=== PATIENT | male | born 2000 | race Asian ===

== ENCOUNTER 2019-12-14 05:05 | Emergency (ER) | payer OTHER ==
[~2019-12-14] VITALS: Ht 177 cm; Wt 60.0 kg
[2019-12-14] MEDS ORDERED: NS IV 1000 ML 1,000 ML IV SCH (05:26)
--- NOTE | 2019-12-14 05:29 | ED Trauma-Multisystem ---
General Chief Complaint: Trauma-Non Activation Stated Complaint: FALL DOWN STAIRS Source of Information: Patient (MERVATJENNIFER Mcduffie DO) History of Present Illness Date Seen by Provider: Dec 14, 2019 Time Seen by Provider: 05:16 Initial Comments PT ARRIVES VIA POV --AMBULATES IN ON HIS OWN STATES HE WAS WALKING UP STAIRS AND SLIPPED ON SOME SOCCER BALLS THAT WERE ON THE STAIRS, AND FELL BACKWARDS DOWN > 10 STAIRS, HITTING HIS HEAD, LEFT ARM, LEFT LEG--IS UNKNOWN EXACTLY WHAT HE HIT HIS HEAD, ARM AND LEG ON WHEN HE FELL DENIES LOSS OF CONSCIOUSNESS DENIES NECK OR BACK PAIN NO VISION CHANGES--WEARS GLASSES NO NAUSEA/VOMITING NO PARESTHESIAS OR MOTOR DEFICITS OCCURRED JUST PRIOR TO ARRIVAL LAST TETANUS IS UNKNOWN PT IMMEDIATELY PLACED IN CERVICAL COLLAR ON ARRIVAL [facility] ST[facility] (JENNIFER AKINS DO) Allergies and Home Medications Allergies Coded Allergies: No Known Drug Allergies (Unverified , 12/14/19) Patient Home Medication List Home Medication List Reviewed: Yes (LUCY SEGURA MD) Review of Systems Review of Systems Constitutional: no symptoms reported; No dizziness Eyes: No Symptoms Reported; Denies Vision Changes Ears: No Symptoms Reported Nose: No Symptoms Reported Mouth: No Symptoms Reported Throat: No Symptoms to Report Respiratory: no symptoms reported Cardiovascular: No Symptoms Reported; Denies Chest Pain Gastrointestinal: no symptoms reported; No abdominal pain, No nausea, No vomiting Genitourinary: no symptoms reported Musculoskeletal: see HPI Skin: see HPI (ABRASIONS TO ARMS AND LEGS, AND LACERATION TO RIGHT POST- AURICULAR AREA) Psychiatric/Neurological: No Symptoms Reported; Denies Cognitive Dysfunction, Denies Headache, Denies Numbness, Denies Petit Mal Seizures, Denies Tingling, Denies Tonic Clonic Seizures (JENNIFER AKINS DO) Past Zxipkvx-Kdorfd-Samlju Hx Past Med/Social Hx: Reviewed and Corrections made (JENNIFER AKINS DO) Patient Social History Alcohol Use: Denies Use Recreational Drug Use: No Smoking Status: Current Everyday Smoker Type Used: Hookah Recent Foreign Travel: No Contact w/Someone Who Travel: No (JENNIFER AKINS DO) Immunizations Up To Date Tetanus Booster (TDap): Unknown (JENNIFER AKINS DO) Past Medical History Surgeries: No Respiratory: No Cardiac: No Neurological: No Genitourinary: No Gastrointestinal: No Musculoskeletal: No Endocrine: No HEENT: No Cancer: No Psychosocial: No Integumentary: No Blood Disorders: No (JENNIFER AKINS DO) Physical Exam Vital Signs Vital Signs - First Documented 12/14/19 05:19 Temp 36.7 Pulse 74 Resp 19 B/P (MAP) 150/93 (112) Pulse Ox 99 O2 Delivery Room Air (LUCY SEGURA MD) Height, Weight, BMI Height: '" Weight: lbs. oz. kg; BMI Method: General Appearance: No Apparent Distress, WD/WN, Anxious Head: Lacerations (RIGHT POST-AURICULAR AREA WITH LARGE LACERATION, TENDERNESS AND SWELLING), Swelling, Tenderness Neck: Non Tender, Other (IMMEDIATELY PLACED IN CERVICAL COLLAR ON ARRIVAL) Cardiovascular: No Edema, No Gallop, No JVD, No Murmur, Normal Peripheral Pulses, Extra Beats (OCCASIONAL ECTOPY--C/W OCCASIONAL PVC'S AND PAC'S ON MONITOR), Tachycardia Respiratory: Chest Non Tender, Normal Breath Sounds, No Accessory Muscle Use, No Respiratory Distress, Other (MINOR ABRASION TO MID UPPER STERNAL AREA. NO DEFORMITY OR TENDERNESS, NO CREPITANCE OR SUB Q AIR. ) Gastrointestinal: Normal Bowel Sounds, No Organomegaly, No Pulsatile Mass, Non Tender, Soft Back: Normal Inspection, No CVA Tenderness, No Vertebral Tenderness Extremity: Normal Capillary Refill, Normal Range of Motion, No Calf Tenderness, No Pedal Edema, Other (ABRASIONS AND TENDERNESS TO DISTAL 1/2 OF ANTERIOR ASPECT OF LEFT LOWER LEG. NO DEFORMITY OR CREPITANCE. NO SWELLING OR BRUISING. MOTOR/SENSORY/VASCULAR INTACT. LEFT POSTERIOR FOREARM WITH HEMATOMA TO MID FOREARM AND SUPERFICIAL ABRASIONS TO PROXIMAL AND MID FOREARM. MOTOR/SEN [place]/VASCULAR INTACT. NO HIP OR KNEE TENDERNESS. NO SHOULDER TENDERNESS. 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 Norm as Tested Skin: Normal Color, Warm/Dry, Other (ABRASIONS AND LACERATION NOTED ABOVE) (JENNIFER AKINS DO) Chavies Coma Score Best Eye Response (Chavies): (4) Open Spontaneously Best Verbal Response (Radha): (5) Oriented Best Motor Response (Chavies): (6) Obeys Commands Chavies Total: 15 (JENNIFER AKINS Procedures/Interventions Wound Location: Scalp Wound Length (cm): 2.5 Wound's Depth, Shape: irregular, flap, sub Q Wound Explored: contaminated Irrigated w/ Saline (ccs): 500 Betadine Prep?: Yes Anesthesia: Lidocaine w/ Epi Volume Anesthetic (ccs): 6 Suture: Prolene Suture Size: 4-0 Number of Sutures: 3 Sterile Dressing Applied?: No Progress Surface of the wound was sprayed with lidocaine with epinephrine. Skin was then cleaned with alcohol and lidocaine with epinephrine was injected for anesthetic. Wound was both scrubbed with sterile saline and chlorhexidine and irrigated with normal saline. There was a significant amount of turmeric spice and loose hair in the wound. This required some debridement with forceps. There was a narrow thin the flap of tissue at the inferior aspect of the wound. This was trimmed away before repair. Wound was approximated with 3 sutures of 4-0 Prolene. (LUCY SEGURA MD) Progress/Results/Core Measures Results/Orders My Orders Orders - LUCY SEGURA MD Ketorolac Injection (Toradol Injection) (12/14/19 06:30) Lidocaine/Epi 2% 1:100,000 (Xylocaine/Ep (12/14/19 07:00) Hand, Left, 3 Views (12/14/19 06:48) Hydrocodone/Apap 5/325 Tablet (Lortab 5 (12/14/19 07:15) (LUCY SEGURA MD) Medications Given in ED Current Medications Medications Dose Ordered Sig/Aubrey Route Start Time Stop Time Status Last Admin Dose Admin Acetaminophen/ Hydrocodone Bitart 1 tab ONCE ONCE PO 12/14/19 07:15 12/14/19 07:16 DC 12/14/19 07:20 1 TAB Diphtheria/ Tetanus/Acell Pertussis 0.5 ml ONCE ONCE IM 12/14/19 05:30 12/14/19 05:31 DC 12/14/19 06:18 0.5 ML Ketorolac Tromethamine 30 mg ONCE ONCE IVP 12/14/19 06:30 12/14/19 06:31 DC 12/14/19 06:29 30 MG Lidocaine/ Epinephrine 20 ml ONCE ONCE INJ 12/14/19 07:00 12/14/19 07:01 DC 12/14/19 06:56 20 ML (LUCY SEGURA MD) Vital Signs/I&O 12/14/19 05:19 Temp 36.7 Pulse 74 Resp 19 B/P (MAP) 150/93 (112) Pulse Ox 99 O2 Delivery Room Air (LUCY SEGURA MD) Progress Progress Note : Progress Note 0600--CARE TURNED OVER TO DR. SEGURA, PT SILL IN XRAY DEPT. (JENNIFER AKINS DO) Progress Note #1: Time: 07:36 Progress Note Care of this patient was assumed from Dr. Akins at shift change. CT scans and x- rays were reviewed and reports were reviewed. There were no serious injuries identified. There was a 2.5 cm laceration on the right scalp behind the ear. This was cleaned, debrided, and approximated. During that time patient complained of escalating pain in the left hand. X-ray of the left hand was then obtained. Pain was treated with Toradol and hydrocodone. Patient received a Boostrix tetanus immunization. Progress Note #2: Time: 07:50 Progress Note Hand x-ray was negative. (LUCY SEGURA MD) Diagnostic Imaging Diagonstic Imaging: CT Plain Films/CT/US/NM/MRI: c-spine, head Comments CT head and cervical spine viewed by me and report reviewed. See report below: NAME: LIZ ZAMORANO [facility] REC#: [id number] PT STATUS: REG ER : 2000 PHYSICIAN: JENNIFER AKINS DO ADMIT DATE: 12/14/19/ER Draft Date of Exam:12/14/19 CT HEAD/CERVICAL SPINE WO PROCEDURE: CT head and CT cervical spine without contrast. TECHNIQUE: Multiple contiguous axial images were obtained through the brain and cervical spine without the use of intravenous contrast. Sagittal and coronal reformations through the cervical spine were then performed. Auto Exposure Controls were utilized during the CT exam to meet ALARA standards for radiation dose reduction. INDICATION: Fall. COMPARISON: None. FINDINGS: CT HEAD: No intracranial hemorrhage, mass effect, hydrocephalus or extra-axial fluid collections. No CT evidence of territorial infarction. Mucosal thickening in the left maxillary sinus. Mastoids are clear. CT cervical spine: Normal alignment. Vertebral body heights are preserved. No fractures. No substantial spondylotic change or evidence of neural impingement on this noncontrast exam. The visualized paravertebral soft tissues are unremarkable. Lung apices are clear. IMPRESSION: No acute intracranial or cervical spine CT findings. Dictated on workstation # [id number] Dict: 12/14/19618 Trans: 12/14/19620 SA [id number] Interpreted by: YEN GALE MD Diagonstic Imaging: CT Plain Films/CT/US/NM/MRI: other (thoracic and lumbar spine) Comments CT viewed by me and report reviewed. See report below: NAME: LIZ ZAMORANO [facility] REC#: [id number] PT STATUS: REG ER : 2000 PHYSICIAN: JENNIFER AKINS DO ADMIT DATE: 12/14/19/ER Draft Date of Exam:12/14/19 CT THORACIC/LUMBAR SPINE WO PROCEDURE: CT thoracic and lumbar spine without contrast. TECHNIQUE: Multiple contiguous axial images were obtained through the thoracic and lumbar spine without the use of intravenous contrast. Sagittal and coronal reformations were then performed.All CT scans use one or more of the following dose optimizing techniques: automated exposure control, MA and/or KvP adjustment based on a patient size and exam type, or iterative reconstruction. INDICATION: Fall. COMPARISON: None. FINDINGS: Left apex upper thoracic curvature. Alignment of the thoracic and lumbar spine is otherwise normal. Vertebral body heights preserved. No fractures. No substantial spondylotic change or evidence neural impingement. The visualized pelvis is intact. Visualized ribs are intact. The lungs are clear in the [id number]-[id number]. The visualized abdominal and pelvic contents are unremarkable. IMPRESSION: No acute CT findings in the thoracic or lumbar spine. Dictated on workstation # [id number] Dict: 12/14/19619 Trans: 12/14/19625 [facility] [phone] Interpreted by: YEN GALE MDgonstic Imaging: Xray Plain Films/CT/US/NM/MRI: leg Comments Tib-fib x-ray viewed by me and report reviewed. See report below: NAME: LIZ ZAMORANO [facility] REC#: [id number] PT STATUS: REG ER : 2000 PHYSICIAN: JENNIFER AKINS DO ADMIT DATE: 12/14/19/ER Draft Date of Exam:12/14/19 TIBIA/FIBULA, LEFT, 2 VIEWS EXAM: TIBIA/FIBULA, LEFT, 2 VIEWS INDICATION: Fall. COMPARISON: None. FINDINGS: No fracture or malalignment. No suspicious osteoblastic or lytic lesions. Soft tissue shadows are unremarkable. IMPRESSION: Negative left tibia and fibula radiographs. Dictated on workstation # [id number] Dict: 12/14/19 0615 Trans: 12/14/19616 CHRISTOPHER [id number] Interpreted by: YEN GALE MD Diagonstic Imaging: Xray Plain Films/CT/US/NM/MRI: pelvis Comments Pelvis x-ray viewed by me and report reviewed. See report below: NAME: LIZ ZAMORANO [facility] REC#: [id number] PT STATUS: REG ER : 2000 PHYSICIAN: JENNIFER AKINS DO ADMIT DATE: 12/14/19/ER Draft Date of Exam:12/14/19 PELVIS EXAM: PELVIS INDICATION: Fall. COMPARISON: None. FINDINGS: No fracture or malalignment. No suspicious osteoblastic or lytic lesions. Soft tissue shadows are unremarkable. IMPRESSION: Negative pelvis radiograph. Dictated on workstation # [id number] Dict: 12/14/19 0616 Trans: 12/14/19617 CHRISTOPHER [id number] Interpreted by: YEN GALE MD Diagonstic Imaging: Xray Plain Films/CT/US/NM/MRI: chest Comments Chest x-ray viewed by me and report reviewed. See report below: [facility] REC[facility] [id number] PT STATUS: REG ER : 2000 PHYSICIAN: JENNIFER AKINS DO ADMIT DATE: 12/14/19/ER Draft Date of Exam:12/14/19 CHEST 1 VIEW, AP/PA ONLY EXAM: CHEST 1 VIEW, AP/PA ONLY INDICATION: Fall. Chest pain. COMPARISON: None. FINDINGS: Normal heart size and pulmonary vascularity. No dense consolidation, pleural effusion or pneumothorax. No acute osseous findings. IMPRESSION: Negative chest. Dictated on workstation # [id number] Dict: 12/14/19 0612 Trans: 12/14/19 0613 [facility] [id number] Interpreted by: YEN GALE MD Diagonstic Imaging: Xray Plain Films/CT/US/NM/MRI: forearm Comments Forearm x-ray viewed by me and report reviewed. See report below: NAME: LIZ ZAMORANO [facility] REC#: [id number] PT STATUS: REG ER : 2000 PHYSICIAN: JENNIFER AKINS DO ADMIT DATE: 12/14/19/ER Draft Date of Exam:12/14/19 FOREARM, LEFT, 2 VIEWS EXAM: FOREARM, LEFT, 2 VIEWS INDICATION: Fall. Left forearm pain. COMPARISON: None. FINDINGS: No fracture or malalignment. No suspicious osteoblastic or lytic lesions. Soft tissue swelling about the mid left forearm. No radiopaque foreign bodies. IMPRESSION: No acute osseous findings in the left forearm. Dictated on workstation # [id number] Dict: 12/14/19 0614 Trans: 12/14/1916 [id number] Interpreted by: YEN GALE MD Diagonstic Imaging: Xray Plain Films/CT/US/NM/MRI: hand Comments Left hand x-ray viewed by me and report reviewed. See report below: NAME: LIZ ZAMORANO [facility] REC#: [id number] PT STATUS: REG ER : 2000 PHYSICIAN: LUCY SEGURA MD ADMIT DATE: 12/14/19/ER Draft Date of Exam:12/14/19 HAND, LEFT, 3 VIEWS EXAM: HAND, LEFT, 3 VIEWS INDICATION: Fall. Left 5th metatarsal pain. COMPARISON: None. FINDINGS: No fracture or malalignment. No suspicious osteoblastic or lytic lesions. Soft tissue shadows are unremarkable. IMPRESSION: Negative left hand radiographs. Dictated on workstation # [id number] Dict: 12/14/19 0734 Trans: 12/14/19 0736 [facility] [place] [id number] Interpreted by: YEN GALE MD (ULCY SEGURA MD) Departure Impression Primary Impression: Laceration of scalp Qualified Codes: S01.01XA - Laceration without foreign body of scalp, initial encounter Additional Impressions: Fall down stairs Qualified Codes: W10.8XXA - Fall (on) (from) other stairs and steps, initial encounter Contusion of left forearm Qualified Codes: S50.12XA - Contusion of left forearm, initial encounter Contusion of left hand Qualified Codes: S60.222A - Contusion of left hand, initial encounter Multiple abrasions Disposition: HOME, SELF-CARE Condition: Improved Departure-Patient Inst. Decision time for Depature: 07:20 (LUCY SEGURA MD) Referrals: [facility] (PCP/Family) Primary Care Physician Patient Instructions: Contusion (DC), Laceration Repair With Stitches (DC) Add. Discharge Instructions: Monitor your wounds for signs of infection such as increasing redness, in creasing swelling, fever, or puslike drainage. Please return to care promptly if you notice these symptoms. You may shower starting this evening but do not scrub directly over the wound. You may allow soapy water to run over the surface of the wound. Do not submerge such as swimming until after sutures are removed. Return in 7 days to have the stitches removed. For pain you may take ibuprofen up to 600 mg every 6 hours and Tylenol (acetaminophen) up to 1000 mg every 6 hours as needed. Icing your injuries in 20 minute intervals may be helpful in reducing pain and swelling over the next couple of days. Elevating your injured extremities may also be helpful in reducing pain and swelling. Return to care if you have any further problems or concerns. All discharge instructions reviewed with patient and/or family. Voiced understanding. JENNIFER AKINS DO Dec 14, 2019 05:29 LUCY SEGURA MD Dec 14, 2019 06:36
[2019-12-14] MEDS ORDERED: TETANUS,DIPTH,PERTUSS P/F (BOOSTRIX) 0.5 ML VIAL IM ONE (05:30)
--- NOTE | 2019-12-14 05:36 | NUR ---
PT TO CT DEPT
--- NOTE | 2019-12-14 06:14 | Diagnostic Imaging Report ---
EXAM: CHEST 1 VIEW, AP/PA ONLY INDICATION: Fall. Chest pain. COMPARISON: None. FINDINGS: Normal heart size and pulmonary vascularity. No dense consolidation, pleural effusion or pneumothorax. No acute osseous findings. IMPRESSION: Negative chest. Dictated by: Dictated on workstation # [id number]
--- NOTE | 2019-12-14 06:16 | Diagnostic Imaging Report ---
EXAM: FOREARM, LEFT, 2 VIEWS INDICATION: Fall. Left forearm pain. COMPARISON: None. FINDINGS: No fracture or malalignment. No suspicious osteoblastic or lytic lesions. Soft tissue swelling about the mid left forearm. No radiopaque foreign bodies. IMPRESSION: No acute osseous findings in the left forearm. Dictated by: Dictated on workstation # [id number]
--- NOTE | 2019-12-14 06:17 | Diagnostic Imaging Report ---
EXAM: TIBIA/FIBULA, LEFT, 2 VIEWS INDICATION: Fall. COMPARISON: None. FINDINGS: No fracture or malalignment. No suspicious osteoblastic or lytic lesions. Soft tissue shadows are unremarkable. IMPRESSION: Negative left tibia and fibula radiographs. Dictated by: Dictated on workstation # [id number]
--- NOTE | 2019-12-14 06:18 | Diagnostic Imaging Report ---
EXAM: PELVIS INDICATION: Fall. COMPARISON: None. FINDINGS: No fracture or malalignment. No suspicious osteoblastic or lytic lesions. Soft tissue shadows are unremarkable. IMPRESSION: Negative pelvis radiograph. Dictated by: Dictated on workstation # [id number]
--- NOTE | 2019-12-14 06:21 | Diagnostic Imaging Report ---
PROCEDURE: CT head and CT cervical spine without contrast. TECHNIQUE: Multiple contiguous axial images were obtained through the brain and cervical spine without the use of intravenous contrast. Sagittal and coronal reformations through the cervical spine were then performed. Auto Exposure Controls were utilized during the CT exam to meet ALARA standards for radiation dose reduction. INDICATION: Fall. COMPARISON: None. FINDINGS: CT HEAD: No intracranial hemorrhage, mass effect, hydrocephalus or extra-axial fluid collections. No CT evidence of territorial infarction. Mucosal thickening in the left maxillary sinus. Mastoids are clear. CT cervical spine: Normal alignment. Vertebral body heights are preserved. No fractures. No substantial spondylotic change or evidence of neural impingement on this noncontrast exam. The visualized paravertebral soft tissues are unremarkable. Lung apices are clear. IMPRESSION: No acute intracranial or cervical spine CT findings. Dictated by: Dictated on workstation # [id number]
--- NOTE | 2019-12-14 06:27 | Diagnostic Imaging Report ---
PROCEDURE: CT thoracic and lumbar spine without contrast. TECHNIQUE: Multiple contiguous axial images were obtained through the thoracic and lumbar spine without the use of intravenous contrast. Sagittal and coronal reformations were then performed.All CT scans use one or more of the following dose optimizing techniques: automated exposure control, MA and/or KvP adjustment based on a patient size and exam type, or iterative reconstruction. INDICATION: Fall. COMPARISON: None. FINDINGS: Left apex upper thoracic curvature. Alignment of the thoracic and lumbar spine is otherwise normal. Vertebral body heights preserved. No fractures. No substantial spondylotic change or evidence neural impingement. The visualized pelvis is intact. Visualized ribs are intact. The lungs are clear in the [id number]-[id number]. The visualized abdominal and pelvic contents are unremarkable. IMPRESSION: No acute CT findings in the thoracic or lumbar spine. Dictated by: Dictated on workstation # [id number]
[2019-12-14] MEDS ORDERED: KETOROLAC 30 MG/ML VIAL IVP ONE (06:30)
[2019-12-14] MEDS ORDERED: LIDOCAINE/EPI 2% 1:100,00 (XYLOCAINE) 20 ML VIAL INJ ONE (07:00)
[2019-12-14] MEDS ORDERED: HYDROcodone/APAP 5 MG/325 MG (LORTAB) TAB PO ONE (07:15)
--- NOTE | 2019-12-14 07:17 | NUR ---
2.5cm lac 3 4-0prolene
--- NOTE | 2019-12-14 07:36 | Diagnostic Imaging Report ---
EXAM: HAND, LEFT, 3 VIEWS INDICATION: Fall. Left 5th metatarsal pain. COMPARISON: None. FINDINGS: No fracture or malalignment. No suspicious osteoblastic or lytic lesions. Soft tissue shadows are unremarkable. IMPRESSION: Negative left hand radiographs. Dictated by: Dictated on workstation # [id number]
[2019-12-14 07:54] VITALS: BP 150/93
--- NOTE | 2019-12-14 07:56 | NUR ---
PT STATES WOULD LIKE TO SIT FOR A FEW MINUTES BEFORE LEAVING.
== END 2019-12-14 08:09 | disposition home or self-care (01) ==
LOC: ER 05:09
DX: S01.01XA Laceration without foreign body of scalp, initial encounter (principal); S50.12XA Contusion of left forearm, initial encounter; S60.222A Contusion of left hand, initial encounter; W10.8XXA Fall (on) (from) other stairs and steps, initial encounter; W10.9XXA Fall (on) (from) unspecified stairs and steps, initial encounter; Z23 Encounter for immunization
CPT/HCPCS: 70450; 71045; 72125; 72128; 72131; 72170; 73090; 73130; 73590; 90715; 93041

== ENCOUNTER 2020-01-01 13:01 | Emergency (ER) | payer OTHER ==
[~2020-01-01] VITALS: Ht 175 cm; Wt 70.0 kg
--- OUTSIDE RECORDS SUMMARY | 2020-01-01 13:06 | XMS REPORT | Continuity of Care Document ---
Author Organization Unknown Address Unknown Phone Unavailable Allergies Active Description Code Type Severity Reaction Onset Reported/Identified Relationship to Patient Clinical Status Yes No Known Drug Allergies [id number] Drug Allergy Unknown N/A 12/14/2019 Medications There is no data. Problems Date Dx Coded Attending Type Code Diagnosis Diagnosed By 12/14/2019 LUCY SEGURA MD Ot S01.01XA LACERATION WITHOUT FOREIGN BODY OF SCALP 12/14/2019 LUCY SEGURA MD Ot S50.12XA CONTUSION OF LEFT FOREARM, INITIAL ENCOU 12/14/2019 LUCY SEGURA MD Ot S60.222A CONTUSION OF LEFT HAND, INITIAL ENCOUNTE 12/14/2019 LUCY SEGURA MD Ot W10.8XXA FALL (ON) (FROM) OTHER STAIRS AND STEPS, 12/14/2019 LUCY SEGURA MD Ot W10.9XXA FALL (ON) (FROM) UNSPECIFIED STAIRS AND 12/14/2019 LUCY SEGURA MD Ot Z23 ENCOUNTER FOR IMMUNIZATION 12/15/2019 LUCY SEGURA MD Ot S01.01XA LACERATION WITHOUT FOREIGN BODY OF SCALP 12/15/2019 LUCY SEGURA MD Ot S50.12XA CONTUSION OF LEFT FOREARM, INITIAL ENCOU 12/15/2019 LUCY SEGURA MD Ot S60.222A CONTUSION OF LEFT HAND, INITIAL ENCOUNTE 12/15/2019 LUCY SEGURA MD Ot W10.8XXA FALL (ON) (FROM) OTHER STAIRS AND STEPS, 12/15/2019 LUCY SEGURA MD Ot W10.9XXA FALL (ON) (FROM) UNSPECIFIED STAIRS AND 12/15/2019 LUCY SEGURA MD Ot Z23 ENCOUNTER FOR IMMUNIZATION 12/20/2019 LUCY SEGURA MD Ot S01.01XA LACERATION WITHOUT FOREIGN BODY OF SCALP 12/20/2019 LUCY SEGURA MD Ot S50.12XA CONTUSION OF LEFT FOREARM, INITIAL ENCOU 12/20/2019 LUCY SEGURA MD Ot S60.222A CONTUSION OF LEFT HAND, INITIAL ENCOUNTE 12/20/2019 LUCY SEGURA MD Ot W10.8XXA FALL (ON) (FROM) OTHER STAIRS AND STEPS, 12/20/2019 LUCY SEGURA MD Ot W10.9XXA FALL (ON) (FROM) UNSPECIFIED STAIRS AND 12/20/2019 LUCY SEGURA MD Ot Z23 ENCOUNTER FOR IMMUNIZATION Procedures There is no data. Results There is no data. Encounters ACCT No. Visit Date/Time Discharge Status Pt. Type Provider Facility Loc./Unit Complaint [id number] 12/14/2019 05:09:00 020 08:09:00 DIS Outpatient LUCY SEGURA MD [facility] ER FALL DOWN STAIR S
[2020-01-01 13:25] VITALS: BP 132/79
== END 2020-01-01 13:25 | disposition home or self-care (01) ==
LOC: EDUNIT# 13:01 → ER 13:03
DX: S01.81XD Laceration without foreign body of other part of head, subsequent encounter (principal); X58.XXXD Exposure to other specified factors, subsequent encounter